=== PATIENT | female | born 1970 | race Asian ===

== ENCOUNTER 2024-06-03 14:02 | Emergency (ER) | payer OTHER ==
[~2024-06-03] VITALS: Ht 170.2 cm; Wt 54.4 kg
[2024-06-03 14:19] VITALS: TEMP 97.8
[2024-06-03 15:15] VITALS: PULSE 76; RESP 16; O2SAT 99
[2024-06-03] MEDS ORDERED: IOPAMIDOL 370 MG/ML 100 ML INFUS..BTL INJ ONE (15:21)
[2024-06-03] MEDS: KETOROLAC TROMETHAMINE 30 MG/ML VIAL IV STA (15:39)
[2024-06-03] MEDS: SODIUM CHLORIDE 0.9% 1000ML 1,000 ML IV STA (15:39)
== END 2024-06-03 17:15 | disposition home or self-care (01) ==
LOC: FSED 14:07
DX: R10.31 Right lower quadrant pain (principal); K59.00 Constipation, unspecified; K57.90 Diverticulosis of intestine, part unspecified, without perforation or abscess without bleeding; D25.9 Leiomyoma of uterus, unspecified; D64.9 Anemia, unspecified
CPT/HCPCS: 74177; 80053; 81003; 85025; 99284; J1885; J7030; Q9967